=== PATIENT | female | born 1985 | race Caucasian/White ===

== ENCOUNTER 2019-06-03 08:09 | Emergency (ER) | payer OTHER, SELFPAY ==
[2019-06-03 08:10] VITALS: BP 102/76; PULSE 82; RESP 14; TEMP 37; O2SAT 100; BMI 21.2
--- NOTE | 2019-06-03 08:11 | EKG12_ITS ---
Test Reason : CP Blood Pressure : / mmHG Vent. Rate : 082 BPM Atrial Rate : 082 BPM P-R Int : 156 ms QRS Dur : 086 ms QT Int : 388 ms P-R-T Axes : 062 062 040 degrees QTc Int : 453 ms Normal sinus rhythm Possible Left atrial enlargement Borderline ECG Confirmed by SHIRLENE NICK, PACHECO ([id number]), purchase request editor SHELBY CHAVARRIA ([id number]) on 06/05/2019 10:12:03 AM Referred By: MELANIE Confirmed By:PACHECO GARBER MD
--- NOTE | 2019-06-03 08:11 | RAD_ITS ---
STUDY: X-RAY CHEST REASON FOR EXAM: Female, 34 years old. Chest pain x 2 weeks, congestion TECHNIQUE: PA and lateral views of the chest. COMPARISON: Prior comparison studies are not available for review at this time. FINDINGS: The lungs are clear and expanded. There is no demonstrated pleural abnormality. Normal size heart. Normal mediastinum and cassidy. Normal visualized pulmonary arteries. Normal visualized aortic arch and descending thoracic aorta. There is mild levoscoliosis of the thoracic spine. Normal visualized ribs, clavicles, and shoulders. There is no demonstrated abnormality of the visualized soft tissue structures of the upper abdomen. RAD/Chest PA and Lateral IMPRESSION: No active pulmonary disease. Electronically Signed: Genaro Mcwilliams MD at 8:47 EST Tel , Service support ,
--- NOTE | 2019-06-03 08:12 | ED.DCSUM_ITS ---
History of Present Illness Chief Complaint: Chest Pain Informant: Patient Onset: Days Context: Gradual Onset Timing: Intermittent Current Severity: Moderate Maximum Severity: Moderate Narrative: The patient is an otherwise healthy 34-year-old female with no significant medical history that presents to the emergency department with midsternal chest pain. The patient states she is been having this for the past few weeks. She describes it as a burning sensation in her central chest. Sometimes, she will get nauseated. She also admits to burning sensation into her throat. She does admit that there is some changes when she eats. She has been trying to regulate her diet with little improvement. She states that over the past 2 days, she has begun to have some pain in her shoulders which is atypical for her. She denies shortness of breath. She denies any vomiting. She has had history of prior C- section, but no other abdominal surgeries. She is moving her bowels without issue. She denies any leg swelling or history of pulmonary embolus. She denies any recent travel. Prior similar symptoms: No Recent Illness/Hospitalization: No Past Medical History - Allergies and Home Meds Allergies/Adverse Reactions: Allergies No Known Allergies Allergy (Verified 06/03/19 08:16) Primary Care Physician: Cristian Nicholas DO [Primary Care Provider] - Prior records reviewed: Yes Past Medical History: None Surgical History: - - Lives: With Family Smoking Status: Never smoker Review of Systems General: Denies: Chills, Fever, Sweats Eyes: Denies: Visual changes - bilaterally, Diplopia ENT: Denies: Rhinorrhea, Sore throat Cardiovascular: Reports: Chest pain Respiratory: Denies: Dyspnea, Cough, Dyspnea on exertion Gastrointestinal: Reports: Nausea Genitourinary: Denies: Dysuria, Hematuria, Frequency Musculoskeletal: Denies: Back pain, Extremity Pain Skin: Denies: Rash, Wounds Neurological: Denies: Headache, Weakness, Numbness Physical Exam Inital Vital Signs reviewed: Yes General: Well nourished, Well developed, No Acute Distress Head: Normocephalic, Atraumatic Eyes: Perrl, EOMI ENT: Moist mucous membranes, No rhinorrhea Neck: Supple, Nontender Cardiovascular: Regular rate, Regular rhythm, No murmurs Respiratory: No distress, CTA bilaterally, Chest nontender Abdomen: Soft, Nontender, Nondistended, Normal bowel sounds Back: Nontender, Normal Inspection Extremities: Nontender, No edema Skin: Normal color, No rash Neurological: Alert, Oriented x3, Cranial nerves II-XII grossly intact, Normal Strength, Normal Sensation Psychological: Normal affect, Normal Mood Diagnostic/Tx/Re-eval Clinical Impression(s) from Imaging Studies Chest X-Ray 06/03/19 08:11 IMPRESSION: No active pulmonary disease. Electronically Signed: Genaro Mcwilliams MD at 8:47 EST Tel , Service support , Abnormal Lab Results 06/03/19 06/03/19 06/03/19 08:19 08:19 08:30 WBC 4.0 L RBC 4.69 Hgb 13.8 Hct 42.4 MCV 90.4 MCH 29.4 MCHC 32.5 RDW Std Deviation 42.1 RDW Coeff of Zaria 12.7 Plt Count 201 MPV 9.7 Immature Gran % (Auto) 0.200 Neut % (Auto) 68.7 Lymph % (Auto) 22.0 Bradley % (Auto) 8.7 Eos % (Auto) 0.2 Baso % (Auto) 0.2 Absolute Neuts (auto) 2.8 Absolute Lymphs (auto) 0.89 Nucleated RBC % 0 Sodium 140 Potassium 3.3 L Chloride 105 Carbon Dioxide 30.0 Anion Gap 5 BUN 8 Creatinine 0.80 Estim Creat Clear Calc 71.17 Est GFR (MDRD) Af Amer 105 Est GFR (MDRD) Non-Af 87 BUN/Creatinine Ratio 10.0 Glucose 94 Calcium 8.2 L Total Bilirubin 1.00 AST 34 ALT 62 H Alkaline Phosphatase 41 L Troponin I < 0.015 Total Protein 8.3 H Albumin 4.4 Globulin 3.9 Albumin/Globulin Ratio 1.1 Urine Test Negative - Medical Decision Making EKG was obtained on patient arrival. It demonstrated sinus rhythm without acute ischemia. The patient is PE RC negative. Her symptoms do seem most consistent with gastritis or esophagitis. However, given the fact that the pain radiated to her shoulder cardiac work-up was pursued. Chest x-ray was unremarkable for acute process. Screening labs were unremarkable. There is no significant elevation of her liver functions. Alk phos was normal. She has no right upper quadrant pain. With GI cocktail, the patient is pain-free. She is very low risk. I do not feel that she needs cardiac provocative testing. I do feel that this is more likely GI in nature. The patient will be treated with Pepcid and Carafate. She was counseled on dietary modifications. She will be discharged home. Impression 1. Acute gastritis ED Disposition - Plan for ED Patient: Instructions: GASTRITIS vs. ULCER Prescriptions: Sucralfate [Carafate] 1 gm PO 4X/DAY #90 tab Prescription Printed Famotidine [Pepcid] 20 mg PO BID #28 tab Prescription Printed Referrals: Cristian Nicholas DO [Primary Care Provider] -
--- NOTE | 2019-06-03 08:14 | ED.RN ---
no old ekg
[2019-06-03] MEDS: 0.9% Normal Saline 1,000 ML 1000 ML IV (08:25)
[2019-06-03] MEDS: Ondansetron 4 MG/2 ML Vial IV (08:25)
[2019-06-03] MEDS: Mag Hydrox/Al Hydrox/Simeth 30 ML UDC PO (08:25)
[2019-06-03 08:30] LABS: Absolute Lymphocyte Count 0.89 X10^3/uL (0.83-4.51); Absolute Neutrophil Count 2.8 X10^3/uL (2.0-7.7); Basophil# 0.01 X10^3/uL; Basophil% 0.2 % (0-1); Eosinophil# 0.01 X10^3/uL; Eosinophils% 0.2 % (0-5); Hematocrit 42.4 % (37-47); Hemoglobin 13.8 g/dL (12.0-15.0); Lymphocyte # 0.89 X10^3/ul (4.0); Mean Corp Hgb Conc 32.5 g/dL (32-36); Mean Corpuscular Hgb 29.4 pg (27.0-32.0); Mean Corpuscular Volume 90.4 fL (81-99); Mean Platelet Vol. 9.7 fl (6.2-12.0); Monocyte# 0.35 X10^3/uL; Monocyte% 8.7 % (0-10); NRBC Flagged by Analyzer 0 % (0-5); Neutrophil # 2.77 X10^3/uL (2.7-7.7); Neutrophil % 68.7 % (47-70); Platelet Count 201 K/mm3 (150-450); RBC Distribution Width CV 12.7 % (11.6-14.6); RBC Distribution Width SD 42.1 fl (35.1-43.9); Red Blood Count 4.69 M/mm3 (4.2-5.4)
[2019-06-03 08:44] LABS: Internal QC Validated? YES +Cl - CLEAR BKGD; Pregnancy, Urine Negative Negative
[2019-06-03 08:49] LABS: ALB/GLOB Ratio 1.1 RATIO (0.9-2.4); AST(SGOT) 34 U/L (15-37); Alanine Aminotransfer ALT/SGPT 62 U/L (13-56); Albumin, Serum 4.4 g/dL (3.2-5.0); Alkaline Phosphatase 41 U/L (45-117); Anion Gap 5 (5-15); BUN 8 mg/dL (7-18); Calcium,Total 8.2 mg/dL (8.5-10.1); Chloride 105 mmol/L (98-107); EST Glomerular Filtration Rate 87 mL/min (>60); Est Glom Filt Rate - Afr Amer 105 mL/min (>60); Estimated Creatinine Clearance 71.17 ml/min; Globulin 3.9 g/dL (2.2-4.2); Glucose 94 mg/dL (74-106); Potassium 3.3 mmol/L (3.5-5.1); Protein, Total 8.3 g/dL (6.4-8.2); Sodium Level 140 mmol/L (136-145)
[2019-06-03 08:56] VITALS: BP 105/79; PULSE 79; RESP 16; O2SAT 97
== END 2019-06-03 09:08 | disposition home or self-care (01) ==
PROVIDERS: Emergency Provider Emergency Medicine; PCP Family Medicine
DX: K29.00 Acute gastritis without bleeding (principal)
CPT/HCPCS: 71046; 80053; 81025; 84484; 85025; 93005; 96361; 96374; 99284; A4216; J2405

== ENCOUNTER → 2023-02-24 | Outpatient (CLI) | payer OTHER, SELFPAY ==
--- NOTE | 2023-02-24 09:32 | NM_ITS ---
CLINICAL: 38-year-old female with history of right upper quadrant abdominal pain. RADIONUCLIDE HEPATOBILIARY SCINTIGRAPHY COMPARISON: None available FINDINGS: Following the intravenous administration of 5.8 mCi of 99m Tc Mebrofenin, hepatobiliary images reveal: 1. Relatively prompt and homogeneous radiopharmaceutical concentration is noted by a normal sized liver. No parenchymal defects are identified. 2. Gallbladder activity is identified at 10 minutes post radiopharmaceutical administration. 3. Small intestinal tract is observed at 45 minutes following tracer injection. 4. Washout of the radiopharmaceutical by the hepatic parenchyma appears qualitatively normal. Cholecystokinin (0.02 ug/kg) was administered intravenously over a 30-minute period. The post CCK gallbladder ejection fraction calculated at 20 minutes following Cholecystokinin administration was noted to be 53.0 % (normal greater than 35%). During 30 minutes of post CCK imaging, there is no scintigraphic evidence of reflux of the radiotracer into the common hepatic duct or refilling of the gallbladder. OR/Hepatobilliary Img w/Pharm Int IMPRESSION: 1. NORMAL 99m Tc Mebrofenin hepatobiliary imaging examination with Cholecystokinin. A. A gallbladder ejection fraction calculated to be greater than 35% following the administration of Cholecystokinin makes the probability of functional hepatobiliary disease (gallbladder and/or sphincter of Oddi dyskinesia) and/or organic hepatobiliary disease (chronic acalculous cholecystitis and/or cystic duct syndrome) to be low. (Nabeel Espinosa et al, Journal of Nuclear Medicine 32:1695, 1991). Electronically Signed: Dm Celeste DO at 12:10 EST ,
== END | disposition home or self-care (01) ==
PROVIDERS: PCP Family Medicine; Referring Provider Family Medicine; Visit Provider Family Medicine
DX: R10.11 Right upper quadrant pain (principal)
CPT/HCPCS: 78227; A9537; J2805